=== PATIENT | male | born 1950 | race Hispanic/Latino ===

== ENCOUNTER 2017-07-13 10:47 | Inpatient (IN) | payer OTHER ==
[2017-07-13 12:34] LABS: Absolute Lymphocytes (CBC) 1.9 K/uL (0.7-4.9); Absolute Monocytes 0.6 K/uL (0.1-1.3); Absolute Neutrophil 3.3 K/uL (1.8-8.0); Basophils % 0.7 % (0-1.3); Eosinophils % 5.6 % (0-4.4); Hematocrit 44.1 % (39.6-49.0); MCH 30.8 pg (27.0-35.0); MPV 8.2 fL (7.6-11.3); RBC Red Blood Cell Count 4.75 M/uL (4.33-5.43)
[2017-07-13 12:49] LABS: Protime INR 0.94
[2017-07-13 12:59] LABS: Potassium 3.5 mEq/L (3.6-5.0)
[2017-07-13 13:05] LABS: Albumin 4.2 g/dL (3.2-5.5); Bilirubin Direct 0.1 mg/dL (0-0.2); Protein, Total 7.1 g/dL (6.0-8.3)
[2017-07-13 13:07] LABS: Urine Blood 3+ (NEG); Urine Glucose 2+ (NEG); Urine Protein 3+ (NEG); Urine Specific Gravity <1.005 (1.005-1.030); Urine pH >8.5 (5.0-7.0)
[2017-07-13 13:34] LABS: Urine Bacteria <20 /HPF (NONE SEEN); Urine Culture Reflex Order NOT NEEDED; Urine RBC TNTC /HPF (NONE SEEN)
--- NOTE | 2017-07-13 13:47 | RAD REPORT ---
EXAM DESCRIPTION: CTAbdomen Pelvis W Contrast - 07/13/2017 1:32 pm CLINICAL HISTORY: Abdominal pain. Hematuria COMPARISON: 08/27/2012 TECHNIQUE: Biphasic CT imaging of the abdomen and pelvis was performed with 100 ml non-ionic IV cont rast. All CT scans are performed using dose optimization technique as appropriate and may include automated exposure control or mA/KV adjustment according to patient size. FINDINGS: The lung bases are clear. The liver, spleen and adrenal glands are normal. 4 mm calcification is seen in the pancreatic head re gion, unchanged. No worrisome pancreatic abnormality seen. Several benign-appearing cysts are present in both renal cortices. No aggressive renal lesion detected. No bowel obstruction, free air, free fluid or abscess. The appendix is normal. No evidence of signi ficant lymphadenopathy. A large 7 x 4 cm soft tissue density is present in the urinary bladder which may represent a large bl ood clot. Heterogenous appearance to the prostate gland is also seen. IMPRESSION: 7 x 4 cm soft tissue density in the urinary bladder the dependent portion is suspicious for a blood clot, although underlying mass lesion not excluded. Followup cystoscopy may be of value f or further assessment.
[2017-07-13] MEDS ORDERED: NACL 0.9% IRR SOLN 4,000 ML IRR ONE (15:01)
[2017-07-13] MEDS ORDERED: LIDOCAINE VISCOUS 2% SOLN 15 ML UDC ONE (15:01)
[2017-07-13] MEDS ORDERED: NACL 0.9% IRR SOLN 2,000 ML IRR ONE ×4 (16:48→18:39)
[2017-07-13] MEDS ORDERED: CEFTRIAXONE/SWI 1gm 1 GM/10 ML SYR ONE (17:43)
--- NOTE | 2017-07-13 18:05 | ER ---
Nurse's Notes [facility] Name: Rikki Márquez Age: 66 yrs Sex: Male : 1950 Arrival Date: 07/13/2017 Time: 10:50 Bed 25 Private MD: None, None Diagnosis: Urinary tract infection, site not specified;Hematuria Presentation: 07/13 10:51 Presenting complaint: Patient states: "i noticed blood in my urine yesterday, off and tw2 on for years, but yesterday was lots of blood, all red". Transition of care: patient was not received from another setting of care. Onset of symptoms was July 13, 2017. Initial Sepsis Screen: Does the patient meet any 2 criteria? No. Patient's initial sepsis screen is negative. Does the patient have a suspected source of infection? No. Patient's initial sepsis screen is negative. Care prior to arrival: None. 10:51 Method Of Arrival: Ambulatory tw2 10:51 Acuity: KASIA 3 tw2 Historical: - Allergies: 10:56 No Known Allergies; tw2 - Home Meds: 10:56 aspirin 81 mg Oral chew 1 tab once daily [Active]; atorvastatin 10 mg oral tab 1 tab tw2 once daily [Active]; lisinopril 20 mg Oral tab 1 tab once daily [Active]; isosorbide mononitrate 30 mg Oral Tb24 1 tab once daily [Active]; Triumeq 600-50-300 mg oral tab 1 tab once daily [Active]; Move Free Joint Health 750 mg-100 mg- 1.65 mg-108 mg oral tab [Active]; - PMHx: 10:56 HIV; Hypertension; Hyperlipidemia; tw2 - PSHx: 10:56 prostate reduced; heart stents; 2 leg stents; tw2 - Immunization history:: Adult Immunizations up to date. - Social history:: Smoking status: Patient uses tobacco products, smoked for 50 years, 1-2 pks/day. Screenin:25 Abuse screen: Denies threats or abuse. Denies injuries from another. Nutritional sv screening: No deficits noted. Tuberculosis screening: No symptoms or risk factors identified. Fall Risk None identified. Assessment: 11:47 General: Appears in no apparent distress. comfortable, well developed, Behavior is sv calm, cooperative, appropriate for age. Pain: Denies pain. Neuro: Level of Consciousness is awake, alert, obeys commands, Oriented to person, place, time, situation, Moves all extremities. Full function Gait is steady, Speech is normal. Respiratory: Respiratory effort is even, unlabored, Respiratory pattern is regular, symmetrical. : Urine is michelle blood, Reports blood red urine that has worsened. Derm: Skin is pink, warm \\T\\ dry. Musculoskeletal: Range of motion: intact in all extremities. 14:01 Reassessment: Patient appears in no apparent distress at this time. No changes from sv previously documented assessment. Patient and/or family updated on plan of care and expected duration. Pain level reassessed. Patient is alert, oriented x 3, equal unlabored respirations, skin warm/dry/pink. Pt ambulatory to the bathroom with steady gait. No difficulties noted. 15:34 Reassessment: Patient appears in no apparent distress at this time. No changes from sv previously documented assessment. Patient and/or family updated on plan of care and expected duration. Pain level reassessed. Patient is alert, oriented x 3, equal unlabored respirations, skin warm/dry/pink. 16:11 Reassessment: Patient appears in no apparent distress at this time. Patient and/or sv family updated on plan of care and expected duration. Pain level reassessed. Patient is alert, oriented x 3, equal unlabored respirations, skin warm/dry/pink. 17:30 Reassessment: Pt. resting in room, family \\T\\ bedside... fluids irrigating urinary rk2 catheter. Input/output appropriate. Pt. appears to be in no distress. No needs voiced \\T\\ this time. 18:30 Reassessment: Pt. resting in room, family \\T\\ bedside... NS irrigation infusing. Output rk2 good. No clots noted in urine. Pt. appears to be in no obvious distress. No needs voiced. 20:30 Reassessment: Pt. transported to room by tech... New bag of NS irrigation fluids placed rk2 and cath bag emptied. Pt. appeared to be in no distress \\T\\ this time. Vital Signs: 10:51 BP 144 / 85; Pulse 65; Resp 17; Temp 98.2(TE); Pulse Ox 99% on R/A; Weight 77.11 kg tw2 (R); Height 5 ft. 4 in. (162.56 cm); Pain 0/10; 12:41 BP 147 / 73; Pulse 55; Resp 18; Pulse Ox 98% ; sv 13:50 BP 140 / 72; Pulse 56; Resp 18; Pulse Ox 100% ; sv 15:30 Pulse 59; Resp 18; Pulse Ox 100% on R/A; sv 16:10 BP 153 / 71; Pulse 66; Resp 20; Pulse Ox 100% ; sv 17:00 BP 133 / 73; Pulse 54; Resp 17; Pulse Ox 99% on R/A; rk2 18:00 BP 151 / 71; Pulse 53; Resp 17; Pulse Ox 99% on R/A; rk2 19:00 BP 143 / 82; Pulse 52; Resp 17; rk2 20:00 BP 147 / 80; Pulse 56; Resp 17; Pulse Ox 98% on R/A; rk2 10:51 Body Mass Index 29.18 (77.11 kg, 162.56 cm) tw2 ED Course: 10:50 Patient arrived in ED. mr 10:51 None, None is Private Physician. mr 10:52 Triage completed. tw2 10:52 Arm band placed on. tw2 11:45 Love Anaya, OLESYA is Primary Nurse. sv 11:46 Omid Hogue NP is PHCP. pm1 11:46 Fredy Boothe MD is Attending Physician. pm1 12:25 Patient has correct armband on for positive identification. Placed in gown. Bed in low sv position. Call light in reach. Door closed. Warm blanket given. Head of bed elevated. 12:25 Initial lab(s) drawn, by me, sent to lab. Inserted saline lock: 20 gauge in left sv antecubital area, using aseptic technique. Blood collected. Flushed left antecubital with 5 ml normal saline. 12:47 Awaiting lab results, Awaiting CT Scan. sv 13:32 CT Abd/Pelvis - W/Contrast: IV contrast only In Process Unspecified. EDMS 15:50 3-way catheter inserted, using sterile technique, 22 Fr. Returned bloody urine. sv 15:50 Bladder irrigated via [place] with 2000 mls normal saline returned michelle blood Patient sv tolerated well. 16:28 Report given to Cherie DACOSTA. sv 16:32 Primary Nurse role handed off by Love Anaya RN sv 16:55 Cherie Bain RN is Primary Nurse. rk2 18:04 Esther Fine MD is Hospitalizing Provider. pm1 20:28 No provider procedures requiring assistance completed. Patient admitted, IV remains in rk2 place. Administered Medications: 13:10 Drug: Viscous Lidocaine Liquid (4 %) 10 ml Route: Mucous Membrane; sv 17:51 Drug: Rocephin 1 grams Route: IV; Rate: calculated rate; Site: left antecubital; rk2 Intake: 19:18 PO: 0ml; Tubes: 9000ml (); Total: 9000ml. rk2 20:20 Tubes: 2000ml (); Total: [id number]. rk2 Output: 19:18 Drainage: 9600ml; Total: 9600ml. rk2 20:20 Drainage: 2100ml; Total: [id number]. rk2 Outcome: 18:04 Decision to Hospitalize by Provider. pm1 20:28 Admitted to Tele accompanied by tech. rk2 20:28 Condition: good 20:28 Instructed on the need for admit. 20:33 Patient left the ED. rk2 Signatures: Dispatcher [employer] EDLove Queen RN RN Kenya Mattson mr Hogue Omid, CREW LEADER/CONTROL ROOM OPERATOR CREW LEADER/CONTROL ROOM OPERATOR pm1 Rachel Elder RN RN tw2 Cherie Bain, OLESYA RN rk2 Corrections: (The following items were deleted from the chart) 15:35 15:34 No provider procedures requiring assistance completed. sv sv 15:35 15:34 Patient did not have IV access during this emergency room visit. sv sv 15:35 15:34 Discharged to home ambulatory, with family, sv sv 15:35 15:34 Condition: stable sv sv 15:35 15:34 Discharge instructions given to patient, Instructed on discharge instructions, sv follow up and referral plans. no drinking with medication, no driving heavy equipment, medication usage, Demonstrated understanding of instructions, follow-up care, medications, Prescriptions given X 1, sv
--- NOTE | 2017-07-13 18:05 | EDPHYS ---
Physician Documentation [facility] Name: Rikki Márquez Age: 66 yrs Sex: Male : 1950 Arrival Date: 07/13/2017 Time: 10:50 Bed 25 Private MD: None, None ED Physician Fredy Boothe HPI: 07/13 12:00 This 66 yrs old Male presents to ER via Ambulatory with complaints of Blood in pm1 urine. 12:00 Onset: The symptoms/episode began/occurred today. Associated signs and symptoms: pm1 Pertinent negatives: abdominal pain, dysuria, fever. Modifying factors: The patient symptoms are alleviated by. 12:00 The patient presents with urinary symptoms, Hematuria. Modifying factors: The symptoms pm1 are alleviated by nothing, the symptoms are aggravated by nothing. Associated signs and symptoms: Pertinent negatives: abdominal pain, constipation, diarrhea, nausea, vomiting. Severity of symptoms: in the emergency department the symptoms are actually worse. The patient has experienced similar episodes in the past, multiple times. Patient with gross hematuria today. Patient reports on an off hematuria for the past 1-2 years, but today his bleeding is worse than any other bleeding episodes that were light and self resolved.. He has had the problem since he has had a TURP. Historical: - Allergies: 10:56 No Known Allergies; tw2 - Home Meds: 10:56 aspirin 81 mg Oral chew 1 tab once daily [Active]; atorvastatin 10 mg oral tab 1 tab tw2 once daily [Active]; lisinopril 20 mg Oral tab 1 tab once daily [Active]; isosorbide mononitrate 30 mg Oral Tb24 1 tab once daily [Active]; Triumeq 600-50-300 mg oral tab 1 tab once daily [Active]; Move Free [employer] 750 mg-100 mg- 1.65 mg-108 mg oral tab [Active]; - PMHx: 10:56 HIV; Hypertension; Hyperlipidemia; tw2 - PSHx: 10:56 prostate reduced; heart stents; 2 leg stents; tw2 - Immunization history:: Adult Immunizations up to date. - Social history:: Smoking status: Patient uses tobacco products, smoked for 50 years, 1-2 pks/day. ROS: 12:00 Constitutional: Negative for fever, chills, and weight loss, Eyes: Negative for injury, pm1 pain, redness, and discharge, ENT: Negative for injury, pain, and discharge, Neck: Negative for injury, pain, and swelling, Cardiovascular: Negative for chest pain, palpitations, and edema, Respiratory: Negative for shortness of breath, cough, wheezing, and pleuritic chest pain, Abdomen/GI: Negative for abdominal pain, nausea, vomiting, diarrhea, and constipation, Back: Negative for injury and pain. 12:00 MS/Extremity: Negative for injury and deformity, Skin: Negative for injury, rash, and discoloration, Neuro: Negative for headache, weakness, numbness, tingling, and seizure. 12:00 : Positive for hematuria, Negative for burning with urination, difficulty urinating. Exam: 12:00 Constitutional: This is a well developed, well nourished patient who is awake, alert, pm1 and in no acute distress. Head/Face: Normocephalic, atraumatic. Neck: Trachea midline, no thyromegaly or masses palpated, and no cervical lymphadenopathy. Supple, full range of motion without nuchal rigidity, or vertebral point tenderness. No Meningismus. Chest/axilla: Normal chest wall appearance and motion. Nontender with no deformity. No lesions are appreciated. Cardiovascular: Regular rate and rhythm with a normal S1 and S2. No gallops, murmurs, or rubs. Normal PMI, no JVD. No pulse deficits. Respiratory: Lungs have equal breath sounds bilaterally, clear to auscultation and percussion. No rales, rhonchi or wheezes noted. No increased work of breathing, no retractions or nasal flaring. Abdomen/GI: Soft, non-tender, with normal bowel sounds. No distension or tympany. No guarding or rebound. No evidence of tenderness throughout. Back: No spinal tenderness. No costovertebral tenderness. Full range of motion. Skin: Warm, dry with normal turgor. Normal color with no rashes, no lesions, and no evidence of cellulitis. MS/ Extremity: Pulses equal, no cyanosis. Neurovascular intact. Full, normal range of motion. 12:00 Neuro: Orientation: is normal, Mentation: is normal, Motor: moves all fours, Sensation: is normal, no obvious gross deficits, Gait: is steady, at a normal pace, without difficulty. Vital Signs: 10:51 BP 144 / 85; Pulse 65; Resp 17; Temp 98.2(TE); Pulse Ox 99% on R/A; Weight 77.11 kg tw2 (R); Height 5 ft. 4 in. (162.56 cm); Pain 0/10; 12:41 BP 147 / 73; Pulse 55; Resp 18; Pulse Ox 98% ; sv 13:50 BP 140 / 72; Pulse 56; Resp 18; Pulse Ox 100% ; sv 15:30 Pulse 59; Resp 18; Pulse Ox 100% on R/A; sv 16:10 BP 153 / 71; Pulse 66; Resp 20; Pulse Ox 100% ; sv 17:00 BP 133 / 73; Pulse 54; Resp 17; Pulse Ox 99% on R/A; rk2 18:00 BP 151 / 71; Pulse 53; Resp 17; Pulse Ox 99% on R/A; rk2 19:00 BP 143 / 82; Pulse 52; Resp 17; rk2 20:00 BP 147 / 80; Pulse 56; Resp 17; Pulse Ox 98% on R/A; rk2 10:51 Body Mass Index 29.18 (77.11 kg, 162.56 cm) tw2 MDM: 11:47 Patient medically screened. pm1 17:50 Physician consultation: Marian Lynn MD was called at 17:45, was contacted at 17:45, pm1 regarding consult, patient's condition, would like consultation with Cardiology regarding holding Plavix and Aspirin due to stents, would like admission per Dr. Esther Fine MD would like further tests performed, HIV viral titer, would like medications started, Continue antibiotics - Rocephin. urine culture. , Regular diet. Impression UTI with hematuria. 17:57 Physician consultation: Esther Fine MD was called at 17:57, was contacted at 17:57, pm1 regarding admission, patient's condition, and will see patient. 18:20 Data reviewed: vital signs. Data interpreted: Pulse oximetry: on room air is 99 %. pm1 Interpretation: normal. 07/13 12:13 Order name: Urine Microscopic Only; Complete Time: 13:59 pm1 07/13 12:14 Order name: Basic Metabolic Panel; Complete Time: 13:59 pm1 07/13 12:14 Order name: CBC with Diff; Complete Time: 13:03 pm1 07/13 12:14 Order name: Creatinine for Radiology; Complete Time: 13:03 pm1 07/13 12:14 Order name: Hepatic Function; Complete Time: 13:59 pm1 07/13 12:14 Order name: Lipase; Complete Time: 13:59 pm1 07/13 12:13 Order name: Urine Dipstick-Ancillary (obtain specimen); Complete Time: 12:21 pm1 07/13 12:21 Order name: Urine Dipstick--Ancillary (enter results); Complete Time: 13:59 mw2 07/13 12:29 Order name: CT Abd/Pelvis - W/Contrast: IV contrast only; Complete Time: 13:59 pm1 07/13 12:29 Order name: Ptt, Activated; Complete Time: 13:03 pm1 07/13 12:29 Order name: PT-INR; Complete Time: 13:03 pm1 07/13 17:35 Order name: Urine Culture pm07/13 12:14 Order name: IV Saline Lock; Complete Time: 12:41 pm1 07/13 12:14 Order name: Labs collected and sent; Complete Time: 12:41 pm1 07/13 14:26 Order name: Bladder Irrigation; Complete Time: 16:12 pm1 Administered Medications: 13:10 Drug: Viscous Lidocaine Liquid (4 %) 10 ml Route: Mucous Membrane; sv 17:51 Drug: Rocephin 1 grams Route: IV; Rate: calculated rate; Site: left antecubital; rk2 Disposition: 07/14 07:06 Co-signature as Attending Physician, Fredy Boothe MD. rn Disposition: 07/13/17 18:04 Hospitalization ordered by Esther Fine for Observation. Preliminary diagnosis are Urinary tract infection, site not specified, Hematuria. - Bed requested for Telemetry/MedSurg (observation). - Status is Observation. rk2 - Condition is Stable. - Problem is new. - Symptoms have improved. UTI on Admission? Yes Signatures: Dispatcher [employer] She March RN RN kl Verde, Stephanie, RN RN sv Nieto, Roman, MD MD rn Marinas, Patrick, [facility] PROFESSIONAL pm1 Rachel Elder RN RN tw2 Cherie Bain RN RN rk2
--- NOTE | 2017-07-13 18:51 | P.HP ---
Certification for Inpatient Patient admitted to: Inpatient With expected LOS: >2 Midnights Practitioner: I am a practitioner with admitting privileges, knowledge of patient current condition, hospital course, and medical plan of care. Services: Services provided to patient in accordance with Admission requirements found in Title 42 Section 412.3 of the Code of Federal Regulations Patient History Date of Service: 07/13/17 Reason for admission: gross hematuria History of Present Illness: Mr Márquez is a 66 years old male with history of HIV, CAD, PVD S/P caronary and lower extremity stenting, BPH S/P prostatectomy, and according to his statement, since so (14 years ago) he has small hematuria episodes. Yesterday, he start having significant amount of blood coming out with his urine, and also has passed several clots. He has not had fever or chills. No abdominal pain either. Home Medications: Abacavir/Dolutegravir/Lamivudi [Triumeq Tablet] 1 each PO DAILY 07/31/16 Atorvastatin Calcium [Lipitor] 10 mg PO BEDTIME 07/31/16 Glucosam/Chond/Hyalu/Cf Borate [Move Free Joint Health Tablet] 2 each PO DAILY 07/31/16 Hydrochlorothiazide 12.5 mg PO DAILY 07/31/16 - Past Medical/Surgical History -: CAD -: HTN -: PVD -: stent placemetn - Family History Family History: Reviewed- Non-Contributory - Social History Smoking Status: Former smoker Alcohol use: No CD- Drugs: No Place of Residence: Home Review of Systems 10-point ROS is otherwise unremarkable Physical Examination - Physical Exam General: Alert, In no apparent distress HEENT: Atraumatic, PERRLA, Mucous membr. moist/pink, EOMI, Sclerae nonicteric Neck: Supple, 2+ carotid pulse no bruit, No LAD, Without JVD or thyroid abnormality Respiratory: Clear to auscultation bilaterally, Normal air movement Cardiovascular: Regular rate/rhythm, Normal S1 S2 Gastrointestinal: Normal bowel sounds, No tenderness Musculoskeletal: No tenderness Integumentary: No rashes Neurological: Normal speech, Normal strength at 5/5 x4 extr, Normal tone, Normal affect Lymphatics: No axilla or inguinal lymphadenopathy - Studies Laboratory Data (last 24 hrs) 07/13/17 12:33: PT 11.1, INR 0.94, APTT 29.6 07/13/17 12:25: Creatinine 0.91 07/13/17 12:25: WBC 6.2, Hgb 14.6, Hct 44.1, Plt Count 263 07/13/17 12:25: Sodium 136, Potassium 3.5 L, BUN 10, Creatinine 0.97, Glucose 107, Total Bilirubin 1.0, AST 29, ALT 31, Alkaline Phosphatase 56, Lipase 29 Assessment and Plan - Problems (Diagnosis) (1) Gross hematuria Current Visit: Yes Status: Acute (2) CAD (coronary artery disease) Current Visit: Yes Status: Acute Qualifiers: Coronary Disease-Associated Artery/Lesion type: [place] artery [place] vs. transplanted heart: [place] heart Associated angina: without angina Qualified Code(s): I25.10 - Atherosclerotic heart disease of [place] coronary artery without angina pectoris (3) PVD (peripheral vascular disease) Current Visit: Yes Status: Acute (4) HTN (hypertension) Current Visit: Yes Status: Acute Qualifiers: Hypertension type: essential hypertension Qualified Code(s): I10 - Essential (primary) hypertension (5) Dyslipidemia Current Visit: Yes Status: Acute (6) HIV (human immunodeficiency virus infection) Current Visit: Yes Status: Acute - Plan Mr Márquez will be admitted to the hospital due to gross hematuria. Dr Lynn was consulted. He has ordered continuous bladder irrigation. Will hold plavix and Aspirin. Will check his HIV viral load and CD4 status. Will monitor HH close for eventual need of blood transfusion. - Advance Directives Does patient have a Living Will: No Does patient have a Durable POA for Healthcare: No - Code Status/Comfort Care Code Status Assessed: Yes Code Status: Full Code
[2017-07-13] MEDS ORDERED: ACETAMINOPHEN 500 MG TAB PO PRN (20:49)
[2017-07-13] MEDS ORDERED: ONDANSETRON 4 MG/2 ML VIAL IV PRN (20:49)
[2017-07-13] MEDS: NA CHLORIDE 0.9% 1,000 ML IV SCH (21:58)
[2017-07-13] MEDS: NACL 0.9% IRR SOLN 6,000 ML IRR ONE (23:07)
[2017-07-14 04:34] LABS: Absolute Lymphocytes (CBC) 1.4 K/uL (0.7-4.9); Absolute Monocytes 0.8 K/uL (0.1-1.3); Absolute Neutrophil 6.9 K/uL (1.8-8.0); Basophils % 0.5 % (0-1.3); Eosinophils % 2.8 % (0-4.4); Hematocrit 42.1 % (39.6-49.0); Lymphocytes % 14.8 % (15.3-44.8); MCH 31.2 pg (27.0-35.0); MCV 92.9 fL (80-100); MPV 7.9 fL (7.6-11.3); Monocytes % 8.7 % (3.3-12.3); RBC Red Blood Cell Count 4.53 M/uL (4.33-5.43)
[2017-07-14 04:42] LABS: BUN Blood Urea Nitrogen 12 mg/dL (6-20); Bicarbonate 23 mEq/L (21-31); Glucose Level 98 mg/dL (65-120); Potassium 3.8 mEq/L (3.6-5.0); Sodium Level 137 mEq/L (135-145)
[2017-07-14] MEDS: NA CHLORIDE 0.9% 1,000 ML IV SCH ×3 (07:31→19:27)
[2017-07-14] MEDS ORDERED: POTASSIUM CL SA 10 MEQ TAB PO ONE (07:45)
[2017-07-14] MEDS ORDERED: NACL 0.9% IRR SOLN 2,000 ML IRR ONE ×6 (08:00→14:48)
[2017-07-14] MEDS ORDERED: NACL 0.9% IRR SOLN 4,000 ML IRR ONE ×2 (13:53→18:29)
[2017-07-14] MEDS: NACL 0.9% IRR SOLN 6,000 ML IRR ONE (13:58)
--- NOTE | 2017-07-14 17:53 | P.PN ---
Subjective Date of Service: 07/14/17 Chief Complaint: gross hematuria CBI bag is getting clear. No fever. Physical Examination - Vital Signs Temperature: 98.1 F Blood Pressure: 173/78 Pulse: 56 Respirations: 18 Pulse Ox (%): 98 - Physical Exam Neck: Supple, JVD not distended Respiratory: Clear to auscultation bilaterally, Normal air movement Cardiovascular: Regular rate/rhythm, Normal S1 S2 Gastrointestinal: Normal bowel sounds, No tenderness Musculoskeletal: No tenderness Integumentary: No rashes Neurological: Normal speech, Normal tone, Normal affect - Studies Laboratory Data (last 24 hrs) 07/14/17 08:01: Magnesium 2.0 07/14/17 04:20: Sodium 137, Potassium 3.8, BUN 12, Creatinine 0.79, Glucose 98 07/14/17 04:20: WBC 9.5 D, Hgb 14.1, Hct 42.1, Plt Count 242 Medications List Reviewed: Yes Assessment And Plan - Current Problems (Diagnosis) (1) Gross hematuria Onset Date: 07/14/17 Current Visit: Yes Status: Acute (2) CAD (coronary artery disease) Onset Date: 07/14/17 Current Visit: Yes Status: Acute Qualifiers: Coronary Disease-Associated Artery/Lesion type: [place] artery [place] vs. transplanted heart: [place] heart Associated angina: without angina Qualified Code(s): I25.10 - Atherosclerotic heart disease of [place] coronary artery without angina pectoris (3) PVD (peripheral vascular disease) Onset Date: 07/14/17 Current Visit: Yes Status: Acute (4) HTN (hypertension) Onset Date: 07/14/17 Current Visit: Yes Status: Acute Qualifiers: Hypertension type: essential hypertension Qualified Code(s): I10 - Essential (primary) hypertension (5) Dyslipidemia Onset Date: 07/14/17 Current Visit: Yes Status: Acute (6) HIV (human immunodeficiency virus infection) Onset Date: 07/14/17 Current Visit: Yes Status: Acute - Plan #1 Gross hematuria: continue CBI, no significant change in HHDr Lynn planning cystoscopy today. #2 HIV: pending viral load and CD4 levels. #3 CAD: stable no chest pain.
[2017-07-14] MEDS ORDERED: GENTAMICIN 80 MG/100 ML BAG 80 MG/100 ML BAG IV ONE (20:12)
[2017-07-14] MEDS ORDERED: LIDOCAINE 2% MPF 5 ML VIAL ONE (20:22)
[2017-07-14] MEDS ORDERED: PROPOFOL 200 MG/20 ML VIAL IV ONE (20:22)
--- NOTE | 2017-07-14 20:31 | CON ---
History Of Present Illness: The patient is a 66-year-old gentleman with history of HIV, coronary art gabino disease, PVD status post coronary artery and lower extremity stenting, history of BPH, status pos t TURP, who I have not seen for about 3 years, came in having gross hematuria yesterday. UA showed p ositive nitrites. Urine cultures so far have grown anything significant. He was placed on a 3-way c atheter in the bladder and irrigation is light pink hematuria. I also had a CT scan done and was per formed with contrast showing a 4 mm calcification in the area of the pancreatic head, but no worrisom e pancreatic abnormality. Several benign cysts are present in both renal cortices. No aggressive re nal lesions detected. We have no free air, no free fluid in the abdomen. The appendix was negative. He has a large 7 x 4 cm soft tissue mass in the bladder, which may be a large blood clot. He also had some clotting of the catheter last night. Nurses had to irrigate, clear it. He was on aspirin. Plavix, but that has been on hold currently. Home Medications: Abacavir/dolutegravir/lamivudine 1 p.o. daily, Lipitor daily, glucosamine chondroi tin daily, hydrochlorothiazide 12.5 mg daily. Past Medical/surgical History: Coronary disease, hypertension, PVD, stent placement, TURP. Family History: Noncontributory. Social History: Smoking status, former smoker. Alcohol use, none. Drug use, none. Place, resides at home. Review of Systems: A 10-point review of systems otherwise unremarkable. Physical Examination: General: Appears stable. Vital Signs: 98 temperature, 57 pulse, 18 respirations, 125/60 blood pressure, 98% saturation. HEENT: Atraumatic. Normocephalic. Chest: Clear. Heart: S1, S2. Abdomen: Soft, nontender. GI, normal bowel sounds. Skin: No rashes. Laboratory Studies: Reviewed. PT/PTT normal. Creatinine 0.1. White count 6.2, H and H 14 and 44, platelet 263. Electrolytes look okay. HIV viral count is pending. Assessment: History of HIV, viral count was 0 last check. Today it is still 0. Still has medicatio n. Gross hematuria. Clot in the bladder. History of coronary artery disease, peripheral vascular d isease, hypertension, dyslipidemia. Plan: Plan is to go and do a cysto with clot evacuation, fulguration of any bleeders that may be see nNicole VICENTE/REHAN Voice ID: [id number] Report ID: [id number]
[2017-07-14] MEDS ORDERED: FENTANYL CITR 100 MCG/2 ML ONE (21:02)
[2017-07-14] MEDS ORDERED: ONDANSETRON 4 MG/2 ML VIAL ONE (21:23)
[2017-07-14] MEDS ORDERED: DEXAMETHASONE 10 MG/ML VIAL ONE (21:24)
[2017-07-14] MEDS ORDERED: MEPERIDINE HCL 25 MG/0.5 ML ONE (21:28)
[2017-07-14] MEDS ORDERED: GLYCOPYRROLATE 0.2 MG/ML SYR ONE (21:45)
[2017-07-14] MEDS: NA CHLORIDE 0.9% 1,000 ML ONE ×2 (22:00→22:35)
[2017-07-14] MEDS ORDERED: MORPHINE 4 MG/ML SYR IV PRN (23:16)
[2017-07-14] MEDS ORDERED: MORPHINE 5 MG/ML VIAL ONE (23:35)
[2017-07-15] MEDS: NA CHLORIDE 0.9% 1,000 ML IV SCH (05:03)
[2017-07-15 05:13] LABS: Absolute Lymphocytes (CBC) 0.4 K/uL (0.7-4.9); Absolute Monocytes 0.1 K/uL (0.1-1.3); Absolute Neutrophil 6.9 K/uL (1.8-8.0); Basophils % 0.2 % (0-1.3); Eosinophils % 0.1 % (0-4.4); Hematocrit 42.7 % (39.6-49.0); Lymphocytes % 5.8 % (15.3-44.8); MCH 31.6 pg (27.0-35.0); MCV 93.3 fL (80-100); MPV 8.2 fL (7.6-11.3); Monocytes % 1.4 % (3.3-12.3); RBC Red Blood Cell Count 4.57 M/uL (4.33-5.43)
--- NOTE | 2017-07-15 05:47 | OP ---
Surgeon: Marian Lynn MD Anesthesiologist: Dr. Starks. Preoperative Diagnosis: Gross hematuria. Postoperative Diagnoses: Bleeding prostatic adenoma, adenoma found on the bladder trigone as shown i n images; also bleeding prostatic urethra with regrowth of adenoma and multiple veins on the anterior proximal prostate. Procedures Performed: Cystoscopy, transurethral resection of the prostate. Anesthesia: General. Sheriff: None. Estimated Blood Loss: Minimal. Replacement: IV fluids. Path Specimen: Prostate chips and clots. Complications: None. Placement: A 22-Hungarian 3-way Hungarian Wayne catheter with normal saline CBI. Indications: The patient presents above with gross hematuria, history of HIV, and viral count 0. CT scan did not reveal any significant finding. He had a soft tissue, possible clot in the bladder. H e still had some pink hematuria and CBI. After 24 hours, we decided to take him back and do a cystos copy and any indicated procedures. Proper informed consent was given. Procedure In Detail: He was taken to the operative suite, placed in a supine position. The area was prepped and draped, entered the bladder with a cystoscope, found lots of clots in the bladder. This was irrigated out with the resectoscope and we scoped with a 30 and 70-degree lens. No lesions were found in the bladder per se. There was adenoma, tissue growing on the trigone and that was bleeding , and also vessels on the anterior roof of the prostate that looked like that could bleed easily and the prostatic urethra was friable. I went ahead and resected this adenoma in the trigone back to the bladder neck and then resected the rest of the prostate that was adenomatous and looked like it was going to give problems down to the verumontanum. We then coagulated with the bipolar ball. Resectio n was carried with a bipolar loop in normal saline solution. All the chips were removed by the resec toscope loop and sheath, and a 22-Hungarian 3-way hematuria catheter was placed and normal saline CBI wa s began. The patient tolerated the procedure well. PB/MODL Voice ID: [id number] Report ID: [id number]
[2017-07-15 05:49] LABS: BUN Blood Urea Nitrogen 11 mg/dL (6-20); Bicarbonate 22 mEq/L (21-31); Glucose Level 139 mg/dL (65-120); Potassium 4.6 mEq/L (3.6-5.0); Sodium Level 136 mEq/L (135-145)
[2017-07-15 05:50] LABS: Blood Morphology Comment NOT SEEN (NOT SEEN); Platelet Estimate ADEQ; Urine White Blood Cell Casts OK
[2017-07-15] MEDS ORDERED: Morphine 2 MG/2 ML SYR IV PRN (07:47)
[2017-07-15] MEDS ORDERED: CEFTRIAXONE 1 GM/NS 50 ML 1 GM/50 ML BAG IV SCH (09:00)
[2017-07-15] MEDS ORDERED: CEFTRIAXONE/SWI 1gm 1 GM/10 ML SYR IV SCH (09:00)
[2017-07-15] MEDS: NACL 0.9% IRR SOLN 6,000 ML IRR ONE (09:01)
[2017-07-15] MEDS ORDERED: NACL 0.9% IRR SOLN 2,000 ML IRR ONE ×2 (10:21→11:40)
--- NOTE | 2017-07-15 12:00 | P.PN ---
Subjective Date of Service: 07/15/17 Chief Complaint: gross hematuria S/P cystoscopy yesterday. Continue on CBI. No fever. Physical Examination - Vital Signs Temperature: 98.2 F Blood Pressure: 132/58 Pulse: 62 Respirations: 18 Pulse Ox (%): 100 - Physical Exam General: Alert, In no apparent distress Respiratory: Clear to auscultation bilaterally, Normal air movement Cardiovascular: Regular rate/rhythm, Normal S1 S2 Gastrointestinal: Normal bowel sounds, No tenderness Musculoskeletal: No tenderness Integumentary: No rashes Neurological: Normal speech, Normal tone, Normal affect - Studies Medications List Reviewed: Yes Assessment And Plan - Current Problems (Diagnosis) (1) Gross hematuria Onset Date: 07/14/17 Current Visit: Yes Status: Acute (2) CAD (coronary artery disease) Onset Date: 07/14/17 Current Visit: Yes Status: Acute Qualifiers: Coronary Disease-Associated Artery/Lesion type: [place] artery [place] vs. transplanted heart: [place] heart Associated angina: without angina Qualified Code(s): I25.10 - Atherosclerotic heart disease of [place] coronary artery without angina pectoris (3) PVD (peripheral vascular disease) Onset Date: 07/14/17 Current Visit: Yes Status: Acute (4) HTN (hypertension) Onset Date: 07/14/17 Current Visit: Yes Status: Acute Qualifiers: Hypertension type: essential hypertension Qualified Code(s): I10 - Essential (primary) hypertension (5) Dyslipidemia Onset Date: 07/14/17 Current Visit: Yes Status: Acute (6) HIV (human immunodeficiency virus infection) Onset Date: 07/14/17 Current Visit: Yes Status: Acute - Plan #1 Gross hematuria: S/P cystoscopy with bladder adenoma resection and TURP. Pathology report still pending. He is still on CBI, still some bleeding stigmata on the bag. May be CBI can be discontinued later today or tomorrow. Follow up Dr Lynn. #2 HIV: pending viral load and CD4 levels. #3 CAD: stable no chest pain.
--- NOTE | 2017-07-15 14:31 | P.DS ---
Admission Date: 07/14/17 Discharge Date: 07/15/17 Disposition: ROUTINE DISCHARGE Discharge Condition: GOOD Reason for Admission: gross hematuria - Problems (1) Gross hematuria Onset Date: 07/14/17 Current Visit: Yes Status: Acute (2) CAD (coronary artery disease) Onset Date: 07/14/17 Current Visit: Yes Status: Acute Qualifiers: Coronary Disease-Associated Artery/Lesion type: [place] artery [place] vs. transplanted heart: [place] heart Associated angina: without angina Qualified Code(s): I25.10 - Atherosclerotic heart disease of [place] coronary artery without angina pectoris (3) PVD (peripheral vascular disease) Onset Date: 07/14/17 Current Visit: Yes Status: Acute (4) HTN (hypertension) Onset Date: 07/14/17 Current Visit: Yes Status: Acute Qualifiers: Hypertension type: essential hypertension Qualified Code(s): I10 - Essential (primary) hypertension (5) Dyslipidemia Onset Date: 07/14/17 Current Visit: Yes Status: Acute (6) HIV (human immunodeficiency virus infection) Onset Date: 07/14/17 Current Visit: Yes Status: Acute Brief History of Present Illness: Mr Márquez is a 66 years old male with history of HIV, CAD, PVD S/P caronary and lower extremity stenting, BPH S/P prostatectomy, and according to his statement, since so (14 years ago) he has small hematuria episodes. Yesterday, he start having significant amount of blood coming out with his urine, and also has passed several clots. He has not had fever or chills. No abdominal pain either. Hospital Course: The patient was admitted and placed initially on continuous CBI. Yesterday Dr Lynn performed a cystoscopy with further bladder adenoma resection, which was the source of bleeding and TURP, for more detailed information, please refer to Dr Lynn's operative report. After the cystoscopy, the patient was placed again on CBI. Today, Dr Villegas evaluate the patient, and he discontinue CBI and clear him to be discharged home. HH remained stable the whole admission. He is hemodynamically stable. Will discharge the patient home today. F/U with Dr Lynn in 1 week. Vital Signs/Physical Exam: Temp Pulse Resp BP Pulse Ox 98.2 F 62 18 132/58 L 100 07/15/17 12:00 07/15/17 12:00 07/15/17 12:00 07/15/17 12:00 07/15/17 12:00 General: Alert, In no apparent distress Respiratory: Clear to auscultation bilaterally, Normal air movement Cardiovascular: Regular rate/rhythm, Normal S1 S2 Gastrointestinal: Normal bowel sounds, No tenderness Musculoskeletal: No tenderness Integumentary: No rashes Neurological: Normal speech, Normal tone, Normal affect Laboratory Data at Discharge: WBC 7.5 K/uL (4.3-10.9) D 07/15/17 04:59 Hgb 14.4 g/dL (13.6-17.9) 07/15/17 04:59 Hct 42.7 % (39.6-49.0) 07/15/17 04:59 Plt Count 249 K/uL (152-406) 07/15/17 04:59 PT 11.1 SECONDS (9.5-12.5) 07/13/17 12:33 INR 0.94 07/13/17 12:33 APTT 29.6 SECONDS (24.3-36.9) 07/13/17 12:33 Sodium 136 mEq/L (135-145) 07/15/17 04:59 Potassium 4.6 mEq/L (3.6-5.0) 07/15/17 04:59 BUN 11 mg/dL (6-20) 07/15/17 04:59 Creatinine 0.82 mg/dL (0.61-1.24) 07/15/17 04:59 Glucose 139 mg/dL (65-120) H 07/15/17 04:59 Magnesium 2.0 mg/dL (1.8-2.5) 07/14/17 08:01 Total Bilirubin 1.0 mg/dL (0.3-1.2) 07/13/17 12:25 AST 29 IU/L (10-42) 07/13/17 12:25 ALT 31 IU/L (10-60) 07/13/17 12:25 Alkaline Phosphatase 56 IU/L (42-121) 07/13/17 12:25 Lipase 29 U/L (22-51) 07/13/17 12:25 Home Medications: Abacavir/Dolutegravir/Lamivudi [Triumeq Tablet] 1 each PO DAILY 07/31/16 Atorvastatin Calcium [Lipitor*] 10 mg PO BEDTIME 07/31/16 Glucosam/Chond/Hyalu/Cf Borate [Move Free [facility] Tablet] 2 each PO DAILY 07/31/16 Clopidogrel Bisulfate [Plavix*] 75 mg PO DAILY 07/13/17 Isosorbide Mononitrate [Isosorbide Mononitrate ER] 30 mg PO DAILY 07/13/17 Lisinopril [Prinivil*] 20 mg PO DAILY 07/13/17 Tramadol HCl [Ultram] 50 mg PO Q6HR PRN #30 tablet 07/15/17 New Medications: Tramadol HCl [Ultram] 50 mg PO Q6HR PRN #30 tablet PRN Reason: Pain Diet: AHA Activity: Ad ismael Followup: Marian Lynn MD [ACTIVE - CAN ADMIT] - 1 Week Time spent managing pt's care (in minutes): 40
--- NOTE | 2017-07-15 18:09 | PN ---
Subjective: The patient is doing well. Urine is clear. Minimal CBI. Objective: Vital signs are stable. Laboratory Data: Stable. looks good. Plan: Plan is to dend the patient home with a leg bag. He is going to start his aspirin today and his Plavix on Wednesday, and the Wayne catheter will come out on Wednesday. CINTHIA/REHAN Voice ID: [id number] Report ID: [id number] JAMA
== END 2017-07-15 15:49 | disposition home or self-care (01) | DRG 667 ==
LOC: ER 10:47 → ERHOLD 18:05 → 4TH 19:55 → OBSVTOIN 07-14 08:54
PROVIDERS: ADMIT Internal Medicine; ATTEND Internal Medicine
PROC: 0TBB7ZZ Excision of Bladder, Via Natural or Artificial Opening (ICD-10-PCS; 2017-07-14)
PROC: 0VT08ZZ Resection of Prostate, Via Natural or Artificial Opening Endoscopic (ICD-10-PCS; principal; 2017-07-14 20:30)
DX: D30.3 Benign neoplasm of bladder (principal); D29.1 Benign neoplasm of prostate; R31.0 Gross hematuria; I25.10 Atherosclerotic heart disease of native coronary artery without angina pectoris; I10 Essential (primary) hypertension; I73.9 Peripheral vascular disease, unspecified; E78.5 Hyperlipidemia, unspecified; Z21 Asymptomatic human immunodeficiency virus [HIV] infection status; Z87.891 Personal history of nicotine dependence
CPT/HCPCS: 36415; 51700; 74177; 80048; 80076; 81003; 81015; 83690; 83735; 85025; 85610; 85730; 87077; 87086; 87088; 87186; 88305; 96374; 99285; G0378; J0696; J1100; J1580; J2175; J2270; J2405; J3010; J7030; Q9967

== ENCOUNTER 2017-07-20 20:08 | Observation (INO) | payer OTHER ==
[~2017-07-20 20:08] MED LIST: NITROGLYCERIN/D5W 50 MG/250 ML BTL IV ONE
[2017-07-20 20:52] LABS: Urine Blood 3+ (NEG); Urine Glucose NEGATIVE (NEG); Urine Protein 2+ (NEG); Urine Specific Gravity 1.015 (1.005-1.030)
[2017-07-20 21:17] LABS: Absolute Lymphocytes (CBC) 1.5 K/uL (0.7-4.9); Absolute Monocytes 0.6 K/uL (0.1-1.3); Absolute Neutrophil 3.4 K/uL (1.8-8.0); Basophils % 0.7 % (0-1.3); Eosinophils % 4.8 % (0-4.4); Hematocrit 40.1 % (39.6-49.0); Lymphocytes % 25.5 % (15.3-44.8); MCH 31.5 pg (27.0-35.0); MCV 91.7 fL (80-100); Monocytes % 10.2 % (3.3-12.3); RBC Red Blood Cell Count 4.38 M/uL (4.33-5.43)
--- NOTE | 2017-07-20 21:22 | RAD REPORT ---
EXAM DESCRIPTION: RAD - Chest Single View - 07/20/2017 9:12 pm CLINICAL HISTORY: Chest pain. COMPARISON: 06/17/2017 FINDINGS: Portable technique limits examination quality. The lungs are grossly clear. The heart is normal in size. No displaced fractures. IMPRESSION: No acute intrathoracic process suspected.
[2017-07-20 21:28] LABS: Potassium 4.1 mEq/L (3.6-5.0)
[2017-07-20 21:32] LABS: Protime INR 0.92
[2017-07-20 21:34] LABS: Bilirubin Direct 0.1 mg/dL (0-0.2); Bilirubin Total 0.5 mg/dL (0.3-1.2); Magnesium 2.2 mg/dL (1.8-2.5)
[2017-07-20 21:36] LABS: CKMB Creatine Kinase MB 1.8 ng/ml (0.3-4.0)
[2017-07-20] MEDS ORDERED: ASPIRIN 81 MG CHEWABLE TABLET ONE (21:38)
[2017-07-20] MEDS ORDERED: CEFTRIAXONE/SWI 1gm 1 GM/10 ML SYR ONE (21:38)
[2017-07-20] MEDS ORDERED: NA CHLORIDE 0.9% 1,000 ML ONE (21:38)
--- NOTE | 2017-07-20 22:01 | RAD REPORT ---
EXAM DESCRIPTION: CT - Angio Aorta For Dissection - 07/20/2017 9:52 pm CLINICAL HISTORY: Chest pain radiating to the back. COMPARISON: 07/13/2017 CT study. TECHNIQUE: CT angiography of the aorta was performed with volume rendering. All CT scans are performed using dose optimization technique as appropriate and may include automated exposure control or mA/KV adjustment according to patient size. FINDINGS: A left aortic arch is present with normal branching pattern of the great vessels.No acute aortic finding is seen such as aneurysm, penetrating ulcer or dissection. Mild atheromatous plaquing is noted. The celiac axis, SMA, MARI and renal arteries are widely patent. No evidence of pulmonary embolism. The lungs are clear. The liver demonstrates no focal mass or biliary dilatation.The spleen, pancreas, adrenal glands and k idneys are within normal limits for arterial phase imaging.Small bilateral renal cysts. No bowel obstruction, free fluid or abscess.The appendix is normal.No pathologic enlarged lymphadenop athy identified. No fracture or worrisome bone lesion seen. Mild to moderate prostatomegaly is seen. IMPRESSION: No acute aortic finding is demonstrated. Mild to moderate prostatomegaly.
[2017-07-20] MEDS ORDERED: CLOPIDOGREL 75 MG TABLET ONE (22:07)
--- NOTE | 2017-07-20 22:12 | ER ---
Nurse's Notes [facility] Name: Rikki Márquez Age: 66 yrs Sex: Male : 1950 Arrival Date: 07/20/2017 Time: 20:08 Bed 5 Private MD: Diagnosis: Weakness;Cystitis;Hematuria;Other chest pain;Asymptomatic human immunodeficiency virus [HIV] infection status Presentation: 07/20 20:17 Presenting complaint: Patient states: "I got released last week from having my prostate lk1 removed. I was doing fine when they took my catheter out on Wednesday (2 days ago) and yesterday I started peeing a little blood. I was Dr. Lynn yesterday morning and he gave my antibiotics that made my ankles hurt and feel depressed. It said I could hurt my tendons so I stopped taking them. Today I have had pressure in my heart and feeling flushed. Nothing about me feels right.". Transition of care: patient was not received from another setting of care. Onset of symptoms was July 19, 2017 at 08:00. Initial Sepsis Screen: Does the patient meet any 2 criteria? No. Patient's initial sepsis screen is negative. Does the patient have a suspected source of infection? No. Patient's initial sepsis screen is negative. Care prior to arrival: None. 20:17 Method Of Arrival: Ambulatory lk1 20:17 Acuity: KASIA 3 lk1 Triage Assessment: 20:21 General: Appears in no apparent distress. Behavior is calm, cooperative, appropriate lk1 for age. Pain: Complains of pain in chest Pain currently is 2 out of 10 on a pain scale. Quality of pain is described as pressure. GI: Patient currently denies diarrhea, nausea, vomiting. : Reports blood in urine. Historical: - Allergies: 20:21 No Known Allergies; lk1 - Home Meds: 07/21 00:58 aspirin 81 mg Oral chew 1 tab once daily [Active]; atorvastatin 10 mg Oral tab 1 tab tl2 once daily [Active]; isosorbide mononitrate 30 mg Oral Tb24 1 tab once daily [Active]; lisinopril 20 mg Oral tab 1 tab once daily [Active]; Move Free [facility] 750 mg-100 mg- 1.65 mg-108 mg Oral tab [Active]; Triumeq 600-50-300 mg Oral tab 1 tab once daily [Active]; - PMHx: 07/20 20:21 HIV; Hyperlipidemia; Hypertension; lk1 - PSHx: 20:21 prostate reduced; Heart stents; 2 leg stents; lk1 - Immunization history:: Adult Immunizations up to date. - Social history:: Smoking status: Patient/guardian denies using tobacco. - Family history:: not pertinent. Screenin:00 Abuse screen: Denies threats or abuse. Nutritional screening: No deficits noted. tl2 Tuberculosis screening: No symptoms or risk factors identified. Fall Risk None identified. Assessment: 21:00 General: Appears in no apparent distress. comfortable, Behavior is calm, cooperative, tl2 appropriate for age. General: Pt states chest pain is chronic and he has always had chest pain on and off since he had stents placed. Pain: Complains of pain in chest Pain does not radiate. Neuro: Level of Consciousness is awake, alert, obeys commands, Oriented to person, place, time, situation. Cardiovascular: Denies nausea, vomiting. Respiratory: Airway is patent Respiratory effort is even, unlabored, Respiratory pattern is regular, symmetrical. GI: No signs and/or symptoms were reported involving the gastrointestinal system. : No signs and/or symptoms were reported regarding the genitourinary system. Derm: Skin is pink, warm \\T\\ dry. 22:30 Reassessment: Patient appears in no apparent distress at this time. No changes from tl2 previously documented assessment. Patient and/or family updated on plan of care and expected duration. Pain level reassessed. Patient is alert, oriented x 3, equal unlabored respirations, skin warm/dry/pink. 23:49 Reassessment: Patient appears in no apparent distress at this time. Patient and/or tl2 family updated on plan of care and expected duration. Pain level reassessed. Patient is alert, oriented x 3, equal unlabored respirations, skin warm/dry/pink. 23:59 Reassessment: Dr. Jay at bedside discussing admission. tl2 07/21 01:01 Reassessment: Patient appears in no apparent distress at this time. Patient and/or tl2 family updated on plan of care and expected duration. Pain level reassessed. Patient is alert, oriented x 3, equal unlabored respirations, skin warm/dry/pink. Pt stable and ready for transport to floor. Vital Signs: 07/20 20:22 BP 135 / 69; Pulse 72; Resp 15; Temp 98.2(TE); Pulse Ox 99% on R/A; Weight 74.84 kg lk1 (R); Height 5 ft. 4 in. (162.56 cm) (R); Pain 2/10; 21:30 BP 121 / 79; Pulse 64; Resp 18; Pulse Ox 98% on R/A; tl2 23:47 BP 116 / 71; Pulse 64; Resp 18; Pulse Ox 99% on R/A; tl2 20:22 Body Mass Index 28.32 (74.84 kg, 162.56 cm) lk1 ED Course: 20:08 Patient arrived in ED. rg4 20:20 Triage completed. lk1 20:24 Arm band placed on right wrist. lk1 20:39 Nam Elias MD is Attending Physician. [facility] 20:42 Sairna Lowery RN is Primary Nurse. tl2 21:00 Patient has correct armband on for positive identification. Bed in low position. Call tl2 light in reach. Side rails up X 1. Adult w/ patient. 21:00 No provider procedures requiring assistance completed. tl2 21:11 X-ray completed. Portable x-ray completed in exam room. Patient tolerated procedure bb2 well. 21:11 Radiology exam delayed due to lab results not completed at this time. (BUN/Creatinine). nj 21:11 XRAY Chest (1 view) In Process Unspecified. EDMS 21:20 Inserted saline lock: 20 gauge in left forearm, using aseptic technique. Blood tl2 collected. 21:[address] via wheelchair. nj 21:52 CT Aorta for Dissection In Process Unspecified. EDMS 22:04 Esther Fine MD is Hospitalizing Provider. [facility] 07/21 01:01 Patient admitted, IV remains in place. tl2 Administered Medications: 07/20 21:31 Not Given (Physician Discretion): Rocephin - (cefTRIAXone) 1 grams IVPB once over 30 tl2 mins; (mix in 50 mL NS) 21:45 Drug: Aspirin 162 mg Route: PO; tl2 07/21 00:26 Follow up: Response: No adverse reaction bp 07/20 21:46 Drug: NS 0.9% 1000 ml Route: IV; Rate: 1 bolus; Site: left antecubital; tl2 07/21 01:03 Follow up: IV Status: Completed infusion; IV Intake: 1000ml tl2 07/20 21:46 Drug: Rocephin 1 grams Route: IV; Rate: calculated rate; Site: left antecubital; tl2 07/21 00:25 Follow up: IV Status: Completed infusion bp 07/20 22:10 Drug: PlaVIX 75 mg Route: PO; tl2 07/21 00:26 Follow up: Response: No adverse reaction bp Intake: 01:03 IV: 1000ml; Total: 1000ml. tl2 Outcome: 07/20 22:12 Decision to Hospitalize by Provider. [facility] 07/21 01:01 Admitted to Tele accompanied by nurse, family with patient, via wheelchair, room 431, tl2 with chart, Report called to OLESYA Paredes Condition: stable Discharge instructions given to patient, family, Instructed on the need for admit, Demonstrated understanding of 01:04 Patient left the ED. tl2 Signatures: Dispatcher [employer] EDNam Yan MD MD cha Kluge, Leah RN RN lk1 Sarina Lowery RN RN tl2 Nat Rios Nathan nj Peltier, Brian, RN RN bp Vanessa Linda2
--- NOTE | 2017-07-20 22:13 | EDPHYS ---
Physician Documentation [facility] Name: Rikki Márquez Age: 66 yrs Sex: Male : 1950 Arrival Date: 07/20/2017 Time: 20:08 Bed 5 Private MD: ED Physician Nam Elias HPI: 07/20 21:04 This 66 yrs old Male presents to ER via Ambulatory with complaints of Doesn't agustin Feel Right. 21:04 The patient or guardian reports chest pain that is located primarily in the substernal agustin area, anterior chest wall. Onset: 1 day(s) ago. had recent prostrate surgery, dr dockery. The pain does not radiate. Onset: The symptoms/episode began/occurred today. Associated signs and symptoms: Pertinent positives: dizziness, nausea, shortness of breath. The chest pain is described as a pressure. Severity of pain: At its worst the pain was mild in the emergency department the pain is unchanged. Historical: - Allergies: 20:21 No Known Allergies; lk1 - Home Meds: 07/21 00:58 aspirin 81 mg Oral chew 1 tab once daily [Active]; atorvastatin 10 mg Oral tab 1 tab tl2 once daily [Active]; isosorbide mononitrate 30 mg Oral Tb24 1 tab once daily [Active]; lisinopril 20 mg Oral tab 1 tab once daily [Active]; Move Free [employer] 750 mg-100 mg- 1.65 mg-108 mg Oral tab [Active]; Triumeq 600-50-300 mg Oral tab 1 tab once daily [Active]; - PMHx: 07/20 20:21 HIV; Hyperlipidemia; Hypertension; lk1 - PSHx: 20:21 prostate reduced; Heart stents; 2 leg stents; lk1 - Immunization history:: Adult Immunizations up to date. - Social history:: Smoking status: Patient/guardian denies using tobacco. - Family history:: not pertinent. ROS: 21:04 Constitutional: Negative for fever, chills, and weight loss, Eyes: Negative for injury, agustin pain, redness, and discharge, ENT: Negative for injury, pain, and discharge, Neck: Negative for injury, pain, and swelling, Respiratory: Negative for shortness of breath, cough, wheezing, and pleuritic chest pain, Abdomen/GI: Negative for abdominal pain, nausea, vomiting, diarrhea, and constipation, Back: Negative for injury and pain, MS/Extremity: Negative for injury and deformity, Skin: Negative for injury, rash, and discoloration, Neuro: Negative for headache, weakness, numbness, tingling, and seizure, Psych: Negative for depression, anxiety, suicide ideation, homicidal ideation, and hallucinations, Allergy/Immunology: Negative for hives, rash, and allergies, Endocrine: Negative for neck swelling, polydipsia, polyuria, polyphagia, and marked weight changes, Hematologic/Lymphatic: Negative for swollen nodes, abnormal bleeding, and unusual bruising. 21:04 Cardiovascular: Positive for chest pain. 21:04 : Positive for hematuria. Exam: 21:04 Constitutional: This is a well developed, well nourished patient who is awake, alert, agustin and in no acute distress. Head/Face: Normocephalic, atraumatic. Eyes: Pupils equal round and reactive to light, extra-ocular motions intact. Lids and lashes normal. Conjunctiva and sclera are non-icteric and not injected. Cornea within normal limits. Periorbital areas with no swelling, redness, or edema. ENT: Nares patent. No nasal discharge, no septal abnormalities noted. Tympanic membranes are normal and external auditory canals are clear. Oropharynx with no redness, swelling, or masses, exudates, or evidence of obstruction, uvula midline. Mucous membranes moist. Neck: Trachea midline, no thyromegaly or masses palpated, and no cervical lymphadenopathy. Supple, full range of motion without nuchal rigidity, or vertebral point tenderness. No Meningismus. Chest/axilla: Normal chest wall appearance and motion. Nontender with no deformity. No lesions are appreciated. Cardiovascular: Regular rate and rhythm with a normal S1 and S2. No gallops, murmurs, or rubs. Normal PMI, no JVD. No pulse deficits. Respiratory: Lungs have equal breath sounds bilaterally, clear to auscultation and percussion. No rales, rhonchi or wheezes noted. No increased work of breathing, no retractions or nasal flaring. Abdomen/GI: Soft, non-tender, with normal bowel sounds. No distension or tympany. No guarding or rebound. No evidence of tenderness throughout. Back: No spinal tenderness. No costovertebral tenderness. Full range of motion. Male : Normal genitalia with no discharge or lesions. Skin: Warm, dry with normal turgor. Normal color with no rashes, no lesions, and no evidence of cellulitis. MS/ Extremity: Pulses equal, no cyanosis. Neurovascular intact. Full, normal range of motion. Neuro: Awake and alert, GCS 15, oriented to person, place, time, and situation. Cranial nerves II-XII grossly intact. Motor strength 5/5 in all extremities. Sensory grossly intact. Cerebellar exam normal. Normal gait. Psych: Awake, alert, with orientation to person, place and time. Behavior, mood, and affect are within normal limits. Vital Signs: 20:22 BP 135 / 69; Pulse 72; Resp 15; Temp 98.2(TE); Pulse Ox 99% on R/A; Weight 74.84 kg lk1 (R); Height 5 ft. 4 in. (162.56 cm) (R); Pain 2/10; 21:30 BP 121 / 79; Pulse 64; Resp 18; Pulse Ox 98% on R/A; tl2 23:47 BP 116 / 71; Pulse 64; Resp 18; Pulse Ox 99% on R/A; tl2 20:22 Body Mass Index 28.32 (74.84 kg, 162.56 cm) lk1 MDM: 20:39 Patient medically screened. [facility] 21:07 Data reviewed: vital signs, nurses notes, lab test result(s), EKG, radiologic studies, [facility] CT scan, plain films. 07/20 20:40 Order name: Basic Metabolic Panel; Complete Time: 21:46 [facility] 07/20 20:40 Order name: BNP; Complete Time: 21:46 [facility] 07/20 20:40 Order name: CBC with Diff; Complete Time: 21:46 [facility] 07/20 20:40 Order name: Ckmb; Complete Time: 21:46 [facility] 07/20 20:40 Order name: CPK; Complete Time: 21:46 [facility] 07/20 20:40 Order name: LFT's; Complete Time: 21:46 [facility] 07/20 20:40 Order name: Magnesium; Complete Time: 21:46 [facility] 07/20 20:40 Order name: PT-INR; Complete Time: 21:46 [facility] 07/20 20:40 Order name: Ptt, Activated; Complete Time: 21:46 [facility] 07/20 20:40 Order name: Troponin (emerg Dept Use Only); Complete Time: 21:46 [facility] 07/20 20:40 Order name: Lipase; Complete Time: 21:46 [facility] 07/20 20:40 Order name: Urine Culture [facility] 07/20 20:48 Order name: Urine Dipstick--Ancillary (enter results); Complete Time: 21:07 em1 07/20 21:03 Order name: Type And Screen; Complete Time: 22:22 [facility] 07/20 20:40 Order name: XRAY Chest (1 view); Complete Time: 21:46 [facility] 07/20 20:40 Order name: EKG; Complete Time: 20:41 [facility] 07/20 20:40 Order name: Cardiac monitoring; Complete Time: 21:07 [facility] 07/20 20:40 Order name: EKG - Nurse/Tech; Complete Time: 21:07 [facility] 07/20 20:40 Order name: IV Saline Lock; Complete Time: 21:07 [facility] 07/20 20:40 Order name: Labs collected and sent; Complete Time: 21:07 [facility] 07/20 21:03 Order name: CT Aorta for Dissection; Complete Time: 22:02 [facility] 07/20 21:03 Order name: Blood Culture Adult (2) [facility] 07/20 22:12 Order name: ABO/RH no charge; Complete Time: 22:22 [facility]ID 07/20 22:18 Order name: CONS Physician Consult [facility] 07/20 22:18 Order name: CONS Physician Consult [facility] 07/20 20:40 Order name: O2 Per Protocol; Complete Time: 21:07 [facility] 07/20 20:40 Order name: O2 Sat Monitoring; Complete Time: 21:07 [facility] 07/20 20:40 Order name: Urine Dipstick-Ancillary (obtain specimen); Complete Time: 21:07 [facility] Administered Medications: 21:31 Not Given (Physician Discretion): Rocephin - (cefTRIAXone) 1 grams IVPB once over 30 tl2 mins; (mix in 50 mL NS) 21:45 Drug: Aspirin 162 mg Route: PO; tl2 07/21 00:26 Follow up: Response: No adverse reaction bp 07/20 21:46 Drug: NS 0.9% 1000 ml Route: IV; Rate: 1 bolus; Site: left antecubital; tl2 07/21 01:03 Follow up: IV Status: Completed infusion; IV Intake: 1000ml tl2 07/20 21:46 Drug: Rocephin 1 grams Route: IV; Rate: calculated rate; Site: left antecubital; 2 07/21 00:25 Follow up: IV Status: Completed infusion bp 07/20 22:10 Drug: PlaVIX 75 mg Route: PO; 2 07/21 00:26 Follow up: Response: No adverse reaction bp Disposition: 07/20/17 22:12 Hospitalization ordered by Esther Fine for Observation. Preliminary diagnosis are Weakness, Cystitis, Hematuria, Other chest pain, Asymptomatic human immunodeficiency virus [HIV] infection status. - Bed requested for Telemetry/MedSurg (observation). - Status is Observation. tl2 - Condition is Stable. - Problem is new. - Symptoms have improved. UTI on Admission? Yes Signatures: Dispatcher [employer] EDMihaela Snell, RN RN Nam Leonardo MD MD cha Kluge, Leah, RN RN lk1 Sarina Lowery RN RN tl2 Vinicius Sosa RN bp
--- NOTE | 2017-07-21 00:42 | P.HP ---
Certification for Inpatient Patient admitted to: Observation With expected LOS: <2 Midnights Practitioner: I am a practitioner with admitting privileges, knowledge of patient current condition, hospital course, and medical plan of care. Services: Services provided to patient in accordance with Admission requirements found in Title 42 Section 412.3 of the Code of Federal Regulations Patient History Date of Service: 07/20/17 Reason for admission: chest pain History of Present Illness: Mr áMrquez is a 66 years old male with history of CAD s/p 2 coronary stent placement, PVD with stenting bilateral, HTN, HIV, HTN, who was recently admitted to the hospital due to gross hematuria. At that time he had a cystoscopy with bladder adenoma removal and TURP. He was discharged home last week. The patient was doing ok, untill today when he start with chest pain. He describe the pain as tightness, 3/10, radiated to the back, associated with nausea, but no with SOB, or diaphoresis. Initial trop I is negative, EKG without changes. He is still has some hematuria, but is improving. Allergies No Known Allergies Allergy (Verified 07/13/17 22:16) Home Medications: Abacavir/Dolutegravir/Lamivudi [Triumeq Tablet] 1 each PO DAILY 07/31/16 Atorvastatin Calcium [Lipitor*] 10 mg PO BEDTIME 07/31/16 Glucosam/Chond/Hyalu/Cf Borate [[employer] Free [employer] Tablet] 2 each PO DAILY 07/31/16 Clopidogrel Bisulfate [Plavix*] 75 mg PO DAILY 07/13/17 Isosorbide Mononitrate [Isosorbide Mononitrate ER] 30 mg PO DAILY 07/13/17 Lisinopril [Prinivil*] 20 mg PO DAILY 07/13/17 Ciprofloxacin HCl [Cipro 250 MG Tablet*] 500 mg PO BID #14 tab 07/15/17 Tramadol HCl [Ultram] 50 mg PO Q6HR PRN #30 tablet 07/15/17 - Past Medical/Surgical History Diabetic: No -: CAD -: HTN -: PVD -: HIV -: Hyperlipidemia -: Enlarged prostate -: stent placement in heart x2 & left leg x2 -: Bilat cataract sx -: sx to reduce prostate - Family History Mother -: Heart disease Notes: Dementia Father -: Lung disease Brother -: Heart disease Sister -: Cancer Notes: stomach cancer - Social History Alcohol use: No CD- Drugs: No Caffeine use: Yes Place of Residence: Home Review of Systems 10-point ROS is otherwise unremarkable Physical Examination - Physical Exam General: Alert, In no apparent distress HEENT: Atraumatic, PERRLA, Mucous membr. moist/pink, EOMI, Sclerae nonicteric Neck: Supple, 2+ carotid pulse no bruit, No LAD, Without JVD or thyroid abnormality Respiratory: Clear to auscultation bilaterally, Normal air movement Cardiovascular: Regular rate/rhythm, Normal S1 S2 Gastrointestinal: Normal bowel sounds, No tenderness Musculoskeletal: No tenderness Integumentary: No rashes Neurological: Normal speech, Normal strength at 5/5 x4 extr, Normal tone, Normal affect Lymphatics: No axilla or inguinal lymphadenopathy - Studies Laboratory Data (last 24 hrs) 07/20/17 21:02: PT 10.8, INR 0.92, APTT 28.9 07/20/17 21:02: WBC 5.8 D, Hgb 13.8, Hct 40.1, Plt Count 306 D 07/20/17 21:02: B-Natriuretic Peptide 48 07/20/17 21:02: Sodium 133 L, Potassium 4.1, BUN 13, Creatinine 0.92, Glucose 108, Magnesium 2.2, Total Bilirubin 0.5, AST 24, ALT 26, Alkaline Phosphatase 59 , Lipase 24 Assessment and Plan - Problems (Diagnosis) (1) Chest pain Current Visit: Yes Status: Acute Qualifiers: Chest pain type: unspecified Qualified Code(s): R07.9 - Chest pain, unspecified (2) CAD (coronary artery disease) Onset Date: 07/14/17 Current Visit: No Status: Acute Qualifiers: Coronary Disease-Associated Artery/Lesion type: [place] artery [place] vs. transplanted heart: [place] heart Associated angina: without angina Qualified Code(s): I25.10 - Atherosclerotic heart disease of [place] coronary artery without angina pectoris (3) HIV (human immunodeficiency virus infection) Onset Date: 07/14/17 Current Visit: No Status: Acute (4) HTN (hypertension) Onset Date: 07/14/17 Current Visit: No Status: Acute Qualifiers: Hypertension type: essential hypertension Qualified Code(s): I10 - Essential (primary) hypertension - Plan Mr Márquez will be admitted to the hospital due to chest pain. So far EKG and trop I are negative. Will order serial troponin I, and consult with cardiology team. He has a UTI, will treat with Rocephin. - Advance Directives Does patient have a Living Will: No Does patient have a Durable POA for Healthcare: No - Code Status/Comfort Care Code Status Assessed: Yes Code Status: Full Code
[2017-07-21] MEDS ORDERED: ACETAMINOPHEN 500 MG TAB PO PRN (01:34)
[2017-07-21] MEDS ORDERED: ONDANSETRON 4 MG/2 ML VIAL IV PRN (01:34)
[2017-07-21] MEDS ORDERED: LORAZEPAM 0.5 MG TABLET PO ONE (01:34)
[2017-07-21] MEDS ORDERED: CLOPIDOGREL 75 MG TABLET PO SCH (09:00)
[2017-07-21] MEDS ORDERED: ISOSORBIDE MONO SR 30 MG TAB PO SCH (09:00)
--- NOTE | 2017-07-21 10:21 | EKG ---
Test Date: 2017-07-20 Test Time: 20:53:38 User Interface Designer: CHLOE MEASUREMENT RESULTS: Intervals: Rate: 65 NH: 196 QRSD: 118 QT: 422 QTc: 438 [place]: P: 45 NH: 196 QRS: 7 T: 31 INTERPRETIVE STATEMENTS: Normal sinus rhythm with sinus arrhythmia Low voltage QRS Right bundle branch block Abnormal ECG Compared to ECG 07/20/2017 20:52:59 Ventricular premature complex(es) no longer present First degree AV block no longer present Electronically Signed On 07-21-17 10:21:01 CDT by Thuan Key
--- NOTE | 2017-07-21 10:22 | EKG ---
Test Date: 2017-07-20 Test Time: 20:52:59 Roller Skate Assembler: CHLOE MEASUREMENT RESULTS: Intervals: Rate: 71 [place]: 224 QRSD: 120 QT: 430 QTc: 467 [place]: P: 46 [place]: 224 QRS: -1 T: 14 INTERPRETIVE STATEMENTS: Sinus rhythm first degree AV block Right bundle branch block Abnormal ECG Compared to ECG 01/22/2011 16:25:37 Ventricular premature complex(es) now present First degree AV block now present Sinus bradycardia no longer present Electronically Signed On 07-21-17 10:22:02 CDT by Thuan Key
[2017-07-21] MEDS ORDERED: REGADENOSON 0.4 MG/5 ML SYR IV ONE (10:37)
--- NOTE | 2017-07-21 12:17 | EKG ---
Test Date: 2017-07-21 Test Time: 03:22:31 Cork Wirer: RT-O MEASUREMENT RESULTS: Intervals: Rate: 53 VA: 230 QRSD: 132 QT: 464 QTc: 435 [place]: P: 45 VA: 230 QRS: 9 T: 36 INTERPRETIVE STATEMENTS: Sinus bradycardia with 1st degree AV block with blocked premature atrial complexes Right bundle branch block Abnormal ECG Compared to ECG 07/20/2017 20:53:38 Atrial premature complex(es) now present First degree AV block now present Sinus rhythm no longer present Sinus arrhythmia no longer present Electronically Signed On 07-21-17 12:16:09 CDT by Thuan Key
--- NOTE | 2017-07-21 12:17 | EKG ---
Test Date: 2017-07-21 Test Time: 03:23:12 Temperature Control Inspector: RT-O MEASUREMENT RESULTS: Intervals: Rate: 48 [place]: 228 QRSD: 118 QT: 468 QTc: 418 [place]: P: 51 WI: 228 QRS: 11 T: 38 INTERPRETIVE STATEMENTS: Marked sinus bradycardia with marked sinus arrhythmia with 1st degree AV block Right bundle branch block Abnormal ECG Compared to ECG 07/21/2017 03:22:31 Atrial premature complex(es) no longer present Electronically Signed On 07-21-17 12:16:08 CDT by Thuan Key
--- NOTE | 2017-07-21 15:30 | CON ---
History Of Present Illness: Mr. Márquez was well until yesterday. He awakened feeling heavy and tig ht in his chest. About 5 years ago, he required an intracoronary stent and stents in his leg arterie s was done by Dr. Huerta. Since then, he has been a regular patient of Dr. Huerta. He has not had chest pain until yesterday. About a week ago, he underwent transurethral resection of the prostate and resection of a bladder tumor and adenoma that was causing profound hematuria. He has been here i [facility]. His EKGs are abnormal, but do not show any changes from old EKGs. Cardiac enzymes a re normal. He has a right bundle branch block. He is no longer having the pain. He has a history o f HIV without immune deficiency. Medications: Outpatient medications are Lipitor, glucosamine, abacavir, dolutegravir otherwise known as lamivudine, lisinopril, Plavix, isosorbide mononitrate. Allergies: HE HAS NO ALLERGIES. Social History: He uses no tobacco. He was a heavy smoker in the past. Physical Examination: General: 5 feet 4 inches, 165 pounds. HEENT: Normal. Lungs: Clear. Neck: Carotids no bruit. Heart: Within normal limits. Abdomen: Soft. Extremities: Palpable distal pulses. No cyanosis, clubbing, or edema. Recommendation: I would recommend we do a pharmacologic nuclear stress test. We will see if there i s any sign of ischemia. The patient's stated if he needs a stent, he will want to be transferre d to Dr. Huerta. I am thinking this is probably not an acute coronary syndrome. Hopefully, we can prove that and allow him to be discharged without transfe rring. JORDON/REHAN Voice ID: [id number] Report ID: [id number]
[2017-07-21] MEDS ORDERED: ATORVASTATIN 10 MG TAB PO SCH (21:00)
--- NOTE | 2017-07-21 23:05 | CON ---
History Of Present Illness: The gentleman is status post TURP less than a week. His catheter has be en out. He is back on his aspirin and Eliquis; however, he came in for chest pain and some gross hem aturia. He said now his urine is clear and he does not have a catheter. He has a history of periphe ral vascular disease, bilateral stenting, hypertension, HIV. He is doing well otherwise. He had EKG s and enzymes which is ruling out an NC. Allergies: NO KNOWN DRUG ALLERGIES. Medications: Lamivudine, Lipitor, chondroitin, Plavix, isosorbide mononitrate, Prinivil, Cipro, tram adol. Past Medical History: Coronary artery disease, hypertension, peripheral vascular disease. HIV, elena l count is pending, it is normal 0. BPH, stent placement in heart x2 and left leg x2, bilateral maycol ract surgeries, TURP. Family History: Noncontributory. Social History: Noncontributory. Review of Systems: Ten-point review of systems is otherwise unremarkable. Physical Examination: General: Alert and oriented. HEENT: Atraumatic, normocephalic. Neck: Supple. Respiratory: Clear. Cardiovascular: S1, S2. Gastrointestinal: Soft, nontender. : Normal. Laboratory Data: Shows urine; 3+ blood, leukocyte esterase, total protein 2+. Chemistry shows geovanni l except for sodium 133, GFR 83, potassium was 4.1, chloride 104, carbon dioxide 23, creatinine 0.92. Hematology; white count 5.8, H and H 13 and 40, platelet count 306. Assessment And Plan: Status post TURP. His pathology from the TURP specimen revealed nodular prosta te, prostatic urethral polyps. No cancer. So, we will continue hydration. Continue to use only a c atheter if he is having clots and difficulty voiding. Otherwise, if he is voiding well, I would be c onservative. He seems to be ruling out for myocardial infarction at this time. Thank you very much. CINTHIA/REHAN Voice ID: [id number] Report ID: [id number]
[2017-07-22] MEDS ORDERED: TRIUMEQ PO SCH (09:00)
--- NOTE | 2017-07-22 18:12 | P.DS ---
Admission Date: 07/20/17 Discharge Date: 07/22/17 Disposition: ROUTINE DISCHARGE Discharge Condition: GOOD Reason for Admission: chest pain Consultations: Cardiology Dr Key Brief History of Present Illness: Mr Márquez is a 66 years old male with history of CAD s/p 2 coronary stent placement, PVD with stenting bilateral, HTN, HIV, HTN, who was recently admitted to the hospital due to gross hematuria. At that time he had a cystoscopy with bladder adenoma removal and TURP. He was discharged home last week. The patient was doing ok, untill today when he start with chest pain. He describe the pain as tightness, 3/10, radiated to the back, associated with nausea, but no with SOB, or diaphoresis. Initial trop I is negative, EKG without changes. He is still has some hematuria, but is improving Hospital Course: Patient was admitted to telemetry.Seral enzymes were obtained which were negative.Cardiology was consulted.Patients chest pain improved.He requested to follow up with his private director of restaurants for outpatient stress test.He was discharged in a stable condition. Vital Signs/Physical Exam: Temp Pulse Resp BP Pulse Ox 98.8 F 60 16 106/62 98 07/21/17 15:51 07/21/17 15:51 07/21/17 15:51 07/21/17 15:51 07/21/17 15:51 General: Alert, In no apparent distress, Oriented x3 HEENT: Atraumatic, Normocephalic, PERRLA, Mucous membr. moist/pink Neck: Supple, JVD not distended, No Thyromegaly, No LAD Respiratory: Clear to auscultation bilaterally, Normal air movement Cardiovascular: No edema, Normal pulses, Regular rate/rhythm, Normal S1 S2 Gastrointestinal: Normal bowel sounds, Soft and benign, Non-distended, W/out hepatosplenomegaly, No ascites, No tenderness, No masses, No rebound, No guarding Musculoskeletal: No clubbing, No swelling, No contractures, No erythema, No tenderness, No warmth Integumentary: No rashes, No breakdown, No significant lesion, No tenderness/ swelling, No erythema, No warmth, No cyanosis Neurological: Normal strength at 5/5 x4 extr Laboratory Data at Discharge: WBC 5.8 K/uL (4.3-10.9) D 07/20/17 21:02 Hgb 13.8 g/dL (13.6-17.9) 07/20/17 21:02 Hct 40.1 % (39.6-49.0) 07/20/17 21:02 Plt Count 306 K/uL (152-406) D 07/20/17 21:02 PT 10.8 SECONDS (9.5-12.5) 07/20/17 21:02 INR 0.92 07/20/17 21:02 APTT 28.9 SECONDS (24.3-36.9) 07/20/17 21:02 Sodium 133 mEq/L (135-145) L 07/20/17 21:02 Potassium 4.1 mEq/L (3.6-5.0) 07/20/17 21:02 BUN 13 mg/dL (6-20) 07/20/17 21:02 Creatinine 0.92 mg/dL (0.61-1.24) 07/20/17 21: Glucose 108 mg/dL (65-120) 07/20/17 21:02 Magnesium 2.2 mg/dL (1.8-2.5) 07/20/17 21:02 Total Bilirubin 0.5 mg/dL (0.3-1.2) 07/20/17 21:02 AST 24 IU/L (10-42) 07/20/17 21:02 ALT 26 IU/L (10-60) 07/20/17 21:02 Alkaline Phosphatase 59 IU/L (42-121) 07/20/17 21:02 Troponin I < 0.03 ng/mL (<0.03) 07/21/17 17:25 B-Natriuretic Peptide 48 pg/ml (<=100) 07/20/17 21:02 Lipase 24 U/L (22-51) 07/20/17 21:02 Home Medications: Abacavir/Dolutegravir/Lamivudi [Triumeq Tablet] 1 each PO DAILY 07/31/16 Atorvastatin Calcium [Lipitor*] 10 mg PO BEDTIME 07/31/16 Glucosam/Chond/Hyalu/Cf Borate [[employer] Free [employer] Tablet] 2 each PO DAILY 07/31/16 Isosorbide Mononitrate [Isosorbide Mononitrate ER] 30 mg PO DAILY 04/24/18 Lisinopril [Prinivil*] 20 mg PO DAILY 07/13/17 Patient Discharge Instructions: F/U with Dr Pritchett tomorrow. Dr Lynn has recommended to D/C Plavix at this time. Diet: AHA Activity: Ad ismael Followup: CHOCO PRITCHETT [UNKNOWN] - 1 Day Physician Review: Patient Assessed, Agree with Above Assessment and Plan
== END 2017-07-21 21:55 | disposition home or self-care (01) ==
LOC: ER 20:08 → ERHOLD 22:48 → 4TH 07-21 00:28
PROVIDERS: ADMIT Internal Medicine; ATTEND Internal Medicine
DX: R07.9 Chest pain, unspecified (principal); N39.0 Urinary tract infection, site not specified; I25.10 Atherosclerotic heart disease of native coronary artery without angina pectoris; I10 Essential (primary) hypertension; Z95.5 Presence of coronary angioplasty implant and graft; Z21 Asymptomatic human immunodeficiency virus [HIV] infection status; Z87.891 Personal history of nicotine dependence; Z90.79 Acquired absence of other genital organ(s)
CPT/HCPCS: 36415; 71045; 71275; 74175; 80048; 80076; 81003; 82550; 82553; 83690; 83735; 83880; 84484; 85025; 85610; 85730; 86850; 86900; 86901; 87040; 87086; 87088; 93005; 96361; 96365; 96366; 99285; G0378; J0696; J2785; J7030; Q9967

== ENCOUNTER 2017-07-30 00:56 | Emergency (ER) | payer OTHER ==
[2017-07-30 02:31] LABS: Urine Appearance TURBID; Urine Color RED
[2017-07-30 02:34] LABS: Urine Blood 3+ (NEG); Urine Glucose NEGATIVE (NEG); Urine Protein 3+ (NEG)
[2017-07-30 02:38] LABS: Urine Bilirubin NEGATIVE (NEG)
[2017-07-30 02:49] LABS: Urine Culture Reflex Order REFLEXED; Urine RBC TNTC /HPF (NONE SEEN)
[2017-07-30 02:49] LABS: Absolute Lymphocytes (CBC) 1.4 K/uL (0.7-4.9); Absolute Monocytes 0.9 K/uL (0.1-1.3); Absolute Neutrophil 7.7 K/uL (1.8-8.0); Basophils % 0.3 % (0-1.3); Eosinophils % 1.8 % (0-4.4); Hematocrit 39.7 % (39.6-49.0); Lymphocytes % 13.5 % (15.3-44.8); MCV 92.6 fL (80-100); MPV 8.5 fL (7.6-11.3); Monocytes % 9.1 % (3.3-12.3); RBC Red Blood Cell Count 4.29 M/uL (4.33-5.43)
[2017-07-30 02:50] LABS: Urine Bacteria <20 /HPF (NONE SEEN)
[2017-07-30 02:51] LABS: Protime INR 1.01
[2017-07-30 02:53] LABS: Potassium 3.6 mEq/L (3.6-5.0)
--- NOTE | 2017-07-30 03:03 | EDPHYS ---
Physician Documentation [facility] Name: Rikki Márquez Age: 66 yrs Sex: Male : 1950 Arrival Date: 07/30/2017 Time: 00:59 Bed 6 Private MD: ED Physician Fredy Boothe HPI: 07/30 01:20 This 66 yrs old Male presents to ER via Ambulatory with complaints of BLOOD IN cp URINE. 01:20 The patient presents with urinary symptoms, hematuria. cp 01:20 Onset: The symptoms/episode began/occurred and became worse today, since having surgery cp by DR Lynn 2 weeks ago. Associated signs and symptoms: Pertinent negatives: abdominal pain, diarrhea, fever, nausea, vomiting. Severity of symptoms: in the emergency department the symptoms are unchanged, despite home interventions. Historical: - Allergies: :28 Cipro; bb - Home Meds: : Triumeq 600-50-300 mg Oral tab 1 tab once daily [Active]; isosorbide mononitrate 30 mg bb Oral Tb24 1 tab once daily [Active]; lisinopril 40 mg oral tab [Active]; atorvastatin 10 mg Oral tab 1 tab once daily [Active]; trazodone 50 mg Oral tab 0.5 tab nightly [Active]; aspirin 81 mg Oral chew 1 tab once daily [Active]; Melatonin Oral [Active]; sertraline 25 mg oral tab 1 tab once daily [Active]; omeprazole 20 mg Oral cpDR 1 cap once daily [Active]; clopidogrel 75 mg oral tab 1 tab once daily [Active]; - PMHx: 01:28 HIV; Hyperlipidemia; Hypertension; bb - PSHx: :28 prostate reduced; Heart stents; 2 leg stents; bb - Immunization history:: Adult Immunizations up to date. - Social history:: Smoking status: unknown. ROS: 01:30 Constitutional: Negative for body aches, chills, fever, poor PO intake. cp 01:30 Eyes: Negative for injury, pain, redness, and discharge. cp 01:30 ENT: Negative for drainage from ear(s), ear pain, sore throat, difficulty swallowing, difficulty handling secretions. 01:30 Cardiovascular: Negative for chest pain, edema, palpitations. 01:30 Respiratory: Negative for cough, shortness of breath, wheezing. 01:30 Abdomen/GI: Negative for abdominal pain, nausea, vomiting, and diarrhea, black/tarry stool, rectal bleeding. 01:30 Back: Negative for pain at rest, pain with movement, radiated pain. 01:30 : Positive for hematuria, Negative for difficulty urinating, bladder incontinence, testicular pain 01:30 Skin: Negative for cellulitis, rash. 01:30 All other systems are negative. Exam: 01:35 Constitutional: The patient appears in no acute distress, alert, awake, cp non-diaphoretic, non-toxic, well developed, well nourished. 01:35 Head/Face: Normocephalic, atraumatic. cp 01:35 Eyes: Periorbital structures: appear normal, Conjunctiva: normal, no exudate, no injection, Sclera: no appreciated abnormality, Lids and lashes: appear normal, bilaterally. 01:35 ENT: External ear(s): are unremarkable, Nose: is normal, Mouth: is normal, Posterior pharynx: is normal, airway is patent. 01:35 Chest/axilla: Inspection: normal, Palpation: is normal, no crepitus, no tenderness. 01:35 Cardiovascular: Rate: normal, Rhythm: regular, Edema: is not appreciated, JVD: is not appreciated. 01:35 Respiratory: the patient does not display signs of respiratory distress, Respirations: normal, no use of accessory muscles, no retractions, no splinting, no tachypnea, labored breathing, is not present, Breath sounds: are clear throughout, no decreased breath sounds, no stridor, no wheezing. 01:35 Abdomen/GI: Inspection: abdomen appears normal, Bowel sounds: active, all quadrants, Palpation: abdomen is soft and non-tender, in all quadrants, rebound tenderness, is not appreciated, voluntary guarding, is not appreciated, involuntary guarding, is not appreciated. 01:35 Back: CVA tenderness, is absent. 01:35 Skin: cellulitis, is not appreciated, no rash present. 01:35 Neuro: Orientation: to person, place \T\ time. Mentation: lucid, able to follow commands, Motor: moves all fours, strength is normal, Sensation: no obvious gross deficits. Vital Signs: 01:28 BP 158 / 77; Pulse 77; Resp 18 S; Temp 98(TE); Pulse Ox 99% on R/A; Weight 72.57 kg bb (R); Height 5 ft. 4 in. (162.56 cm) (R); Pain 2/10; 03:14 BP 120 / 72; Pulse 66; Resp 16; Temp 98.1; Pulse Ox 99% ; Pain 0/10; tl1 03:31 BP 125 / 69; Pulse 69; Resp 17; Temp 98.1; Pulse Ox 100% on R/A; Pain 0/10; tl1 01:28 Body Mass Index 27.46 (72.57 kg, 162.56 cm) bb MDM: 01:00 Patient medically screened. rn 01:00 Differential diagnosis: UTI, urinary retention, prostatitis, urethritis. cp 02:59 Data reviewed: vital signs, nurses notes, lab test result(s), and as a result, I will cp discharge patient, administer antibiotics Rocephin. 07/30 02:10 Order name: CBC with Diff; Complete Time: 02:56 cp 07/30 02:57 Interpretation: Normal except: WBC 10.2; RBC 4.29; HGB 13.3; ANEL% 75.3; LYM% 13.5. cp 07/30 02:10 Order name: BMP; Complete Time: 02:56 cp 07/30 02:57 Interpretation: Normal except: GFR 79. cp 07/30 02:10 Order name: PT-INR; Complete Time: 02:56 cp 07/30 02:10 Order name: Ptt, Activated; Complete Time: 02:56 cp 07/30 01:15 Order name: Urine Dipstick-Ancillary (obtain specimen); Complete Time: 01:49 cp 07/30 02:23 Order name: Urinalysis W/Microscopic; Complete Time: 02:56 EDMS 05 02:57 Interpretation: Normal except: UKET 1+; UBLD 3+; UPROT 3+; U NIT POSITIVE; UESTR 3+; cp UWBC >50; URBC TNTC. 07/30 02:51 Order name: Urine Culture EDMS Administered Medications: 03:10 CANCELLED (Physician Discretion): Rocephin (cefTRIAXone) 1 grams IM once cp 03:14 Drug: Rocephin 1 grams Route: IV; Rate: bolus; Site: left hand; tl1 03:30 Follow up: IV Status: Completed infusion tl1 03:30 Follow up: Response: No adverse reaction; No change in condition tl1 Disposition: 04:45 Co-signature as Attending Physician, Fredy Boothe MD. rn Disposition: 07/30/17 03:02 Discharged to Home. Impression: Urinary tract infection, site not specified. - Condition is Stable. - Discharge Instructions: Urinary Tract Infection. - Prescriptions for Suprax 200 mg Oral tablet,chewable - chew 1 tablet by ORAL route 2 times per day for 10 days; 20 tablet. - Medication Reconciliation Form, Thank You Letter, Antibiotic Education, Prescription Opioid Use form. - Follow up: Marian Lynn MD; When: 1 - 2 days; Reason: Recheck today's complaints. - Problem is new. - Symptoms are unchanged. Signatures: Dispatcher [employer] EDSuellen Gonzalez RN RN bb Nieto, Roman, MD MD rn Lasagna, Tonya, RN RN tl1 Nam Ayoub PA PA cp Corrections: (The following items were deleted from the chart) 02:23 01:15 UA MICROSCOPIC+U.LAB.BRZ ordered. EDMS EDMS 02:23 01:45 URINALYSIS+U.LAB.BRZ ordered. EDMS EDMS 03:10 03:00 Rocephin (cefTRIAXone) 1 grams IM once ordered. cp cp 03:33 03:02 07/30/2017 03:02 Discharged to Home. Impression: Urinary tract infection, site tl1 not specified. Condition is Stable. Forms are Medication Reconciliation Form, Thank You Letter, Antibiotic Education, Prescription Opioid Use. Follow up: Marian Lynn; When: 1 - 2 days; Reason: Recheck today's complaints. Problem is new. Symptoms are unchanged. cp
--- NOTE | 2017-07-30 03:03 | ER ---
Nurse's Notes [facility] Name: Rikki Márquez Age: 66 yrs Sex: Male : 1950 Arrival Date: 07/30/2017 Time: 00:59 Bed 6 Private MD: Diagnosis: Urinary tract infection, site not specified Presentation: 07/30 01:17 Presenting complaint: Patient states: he had prostate surgery approx 2 weeks ago and bb has had blood in his urine since then but today the bleeding got worse with clots. Pt states he cannot sleep and was seen by his PCP started on trazodone today but when he got home he took the trazodone and only slept an hour he called his PCP and she told him not to take it in the daytime. Transition of care: patient was not received from another setting of care. Onset of symptoms was July 30, 2017. Initial Sepsis Screen: Does the patient meet any 2 criteria? No. Patient's initial sepsis screen is negative. Does the patient have a suspected source of infection? No. Patient's initial sepsis screen is negative. Care prior to arrival: None. 01:17 Method Of Arrival: Ambulatory 01:17 Acuity: KASIA 4 bb Historical: - Allergies: : Cipro; bb - Home Meds: : Triumeq 600-50-300 mg Oral tab 1 tab once daily [Active]; isosorbide mononitrate 30 mg bb Oral Tb24 1 tab once daily [Active]; lisinopril 40 mg oral tab [Active]; atorvastatin 10 mg Oral tab 1 tab once daily [Active]; trazodone 50 mg Oral tab 0.5 tab nightly [Active]; aspirin 81 mg Oral chew 1 tab once daily [Active]; Melatonin Oral [Active]; sertraline 25 mg oral tab 1 tab once daily [Active]; omeprazole 20 mg Oral cpDR 1 cap once daily [Active]; clopidogrel 75 mg oral tab 1 tab once daily [Active]; - PMHx: :28 HIV; Hyperlipidemia; Hypertension; bb - PSHx: :28 prostate reduced; Heart stents; 2 leg stents; bb - Immunization history:: Adult Immunizations up to date. - Social history:: Smoking status: unknown. Screenin:48 Abuse screen: Denies threats or abuse. Denies injuries from another. Nutritional ao screening: No deficits noted. Tuberculosis screening: No symptoms or risk factors identified. Fall Risk None identified. Assessment: 01:46 General: Appears in no apparent distress. comfortable, Behavior is calm, cooperative, ao appropriate for age. Pain: Denies pain. Neuro: Level of Consciousness is awake, alert, obeys commands, Oriented to person, place, time, situation, Appropriate for age Moves all extremities. Speech is normal, Facial symmetry appears normal, Pupils are PERRLA. Cardiovascular: Capillary refill < 3 seconds Patient's skin is warm and dry. Respiratory: Airway is patent Respiratory effort is even, unlabored, Respiratory pattern is regular. GI: Abdomen is non-distended. : Urine is blood tinged, Reports blood in the urine. EENT: No signs and/or symptoms were reported regarding the EENT system. Derm: Skin is intact, Skin is normal, Skin temperature is warm. Musculoskeletal: No signs and/or symptoms reported regarding the musculoskeletal system. Vital Signs: 01:28 BP 158 / 77; Pulse 77; Resp 18 S; Temp 98(TE); Pulse Ox 99% on R/A; Weight 72.57 kg bb (R); Height 5 ft. 4 in. (162.56 cm) (R); Pain 2/10; 03:14 BP 120 / 72; Pulse 66; Resp 16; Temp 98.1; Pulse Ox 99% ; Pain 0/10; tl1 03:31 BP 125 / 69; Pulse 69; Resp 17; Temp 98.1; Pulse Ox 100% on R/A; Pain 0/10; tl1 01:28 Body Mass Index 27.46 (72.57 kg, 162.56 cm) ED Course: 00:59 Patient arrived in ED. al2 01:00 Fredy Boothe MD is Attending Physician. rn 01:00 Nam Ayoub PA is PHCP. cp 01:11 Rusty Solitario, OLESYA is Primary Nurse. ao 01:21 Triage completed. bb 01:28 Arm band placed on Patient placed in an exam room, on a stretcher. bb 01:49 Patient has correct armband on for positive identification. Pulse ox on. NIBP on. ao 02:22 No provider procedures requiring assistance completed. Inserted saline lock: 22 gauge tl1 in left hand, using aseptic technique. Blood collected. 03:00 Marian Lynn MD is Referral Physician. cp 03:32 IV discontinued, intact, bleeding controlled, No redness/swelling at site. Pressure tl1 dressing applied. Administered Medications: 03:10 CANCELLED (Physician Discretion): Rocephin (cefTRIAXone) 1 grams IM once cp 03:14 Drug: Rocephin 1 grams Route: IV; Rate: bolus; Site: left hand; tl1 03:30 Follow up: IV Status: Completed infusion tl1 03:30 Follow up: Response: No adverse reaction; No change in condition tl1 Outcome: 03:02 Discharge ordered by . cp 03:31 Discharged to home ambulatory. tl1 03:31 Condition: good 03:31 Discharge instructions given to patient, Instructed on discharge instructions, follow up and referral plans. medication usage, Demonstrated understanding of instructions, follow-up care, medications, Prescriptions given X 1. 03:33 Patient left the ED. tl1 Signatures: Suellen Irvin RN RN Fredy Vázquez MD MD rn Lasagna, Tonya, RN RN tl1 Nam Ayoub PA PA Rusty Solitario RN RN ao Love, Angelica al2
[2017-07-30] MEDS ORDERED: CEFTRIAXONE/SWI 1gm 1 GM/10 ML SYR ONE (03:12)
== END 2017-07-30 03:33 | disposition home or self-care (01) ==
LOC: ER 00:56
DX: N39.0 Urinary tract infection, site not specified (principal); I10 Essential (primary) hypertension; E78.5 Hyperlipidemia, unspecified; Z21 Asymptomatic human immunodeficiency virus [HIV] infection status; Z79.82 Long term (current) use of aspirin; Z88.3 Allergy status to other anti-infective agents; Z95.818 Presence of other cardiac implants and grafts
CPT/HCPCS: 36415; 80048; 81001; 85025; 85610; 85730; 87086; 87088; 96365; 99284; J0696